=== PATIENT | male | born 1965 | race Caucasian/White ===

== ENCOUNTER → 2016-12-31 | Outpatient (CLI) | payer BC ==
--- NOTE | 2017-01-03 07:52 | MRI ---
EXAM DESCRIPTION: Noncontrast MRI of the right shoulder CLINICAL HISTORY: Shoulder pain COMPARISON: None TECHNIQUE: Multiplanar, multi sequence MRI images of the right shoulder were obtained without intra-articular contrast. FINDINGS: There is moderate to severe increased signal seen within the subscapularis tendon and, to a lesser degree, distal supraspinatus and infraspinatus tendons compatible with tendinosis. However, no high-grade partial or full-thickness rotator cuff tear. Muscle bulk of the rotator cuff is normal in signal and morphology. Long head of the biceps is well situated within the intertubercular groove. Biceps labral anchor is intact. Increased signal seen within the base of the superior labrum extending posteriorly to the 9:00 position compatible with a SLAP tear. No displaced labral fragment or para labral cyst formation. Severe degenerative changes of the acromioclavicular joint. No fluid seen within the subdeltoid/subacromial bursa. Type 2 acromion is noted. Glenohumeral joint cartilage is intact. No large joint effusion or loose body. Marrow signal is otherwise unremarkable without fracture or subluxation. IMPRESSION: 1. Severe subscapularis and mild to moderate infraspinatus and supraspinatus tendinosis without high-grade partial or full-thickness rotator cuff tear. 2. Nondisplaced SLAP tear. 3. Severe AC joint osteoarthritis. Electronically signed by: Aneudy Harrell MD 01/03/2017 7:52 AM CDT
== END | disposition home or self-care (01) ==
LOC: MRI 10:57
PROVIDERS: ATTEND Family Medicine
DX: M25.511 Pain in right shoulder (principal)

== ENCOUNTER → 2017-05-31 | Outpatient (CLI) | payer BC | END | disposition home or self-care (01) | LOC: GMAM 10:50 | PROVIDERS: ATTEND Family Medicine | DX: Z12.5 Encounter for screening for malignant neoplasm of prostate (principal) ==

== ENCOUNTER → 2020-01-21 | Outpatient (CLI) | payer BC ==
--- NOTE | 2020-01-21 11:11 | RAD ---
EXAM DESCRIPTION: Pelvis CLINICAL HISTORY: 54 years Male, HIP PAIN LEFT AND RIGHT COMPARISON: None. FINDINGS: Mild degenerative spurring in the lower T-spine with mild degenerative narrowing at the SI joints and hip joints. Mild spurring at the lateral acetabular margins. IMPRESSION: Negative for fracture. Electronically signed by: Edwar Phan MD 01/21/2020 11:10 AM CDT
--- NOTE | 2020-01-21 11:14 | RAD ---
EXAM DESCRIPTION: Knee,Left Complete CLINICAL HISTORY: 54 years, Male, PAIN IN LEFT KNEE COMPARISON: None TECHNIQUE: Four x-ray views of the left knee standing FINDINGS: No fracture or dislocation. Bones appear osteopenic. Narrowed appearance of medial more than lateral compartments on frontal view with prominent spurring at the tibial spines and mild spurring along the medial joint line. Faint calcification of the lateral meniscus. Lateral view shows normal position of the patella. Mild posterior patellar spurring. No definite suprapatellar knee joint effusion. Normal contour of quadriceps and patellar tendons. No abnormal patellar tilt or subluxation on patellar sunrise view. Prominent spurring along the posteromedial aspect of the patella and along the lateral patellar margin. Prominent spurring at the anterior femoral trochlear margins. IMPRESSION: Advanced degenerative osteoarthritic changes as described. Electronically signed by: Edwar Phan MD 01/21/2020 11:12 AM CDT
--- NOTE | 2020-01-21 11:16 | RAD ---
EXAM DESCRIPTION: Knee,Right Complete CLINICAL HISTORY: 54 years, Male, PAIN IN RIGHT KNEE COMPARISON: None TECHNIQUE: Four standing x-ray views of the right knee standing FINDINGS: No fracture or dislocation. Bones appear mildly osteopenic with prominent trabecular pattern. Narrowed appearance of medial more than lateral compartments on frontal view with prominent spurring of the tibial spines and at the intercondylar notch. Prominent medial joint line spurring. Question lateral meniscal calcification. Lateral view shows normal position of the patella. Prominent posterior patellar spurring with narrowed patellofemoral joint No suprapatellar knee joint effusion. Normal contour of quadriceps and patellar tendons. No abnormal patellar tilt or subluxation on patellar sunrise view. Prominent marginal osteophyte formation involving the patella and lateral margins of the femoral trochlea. Some spurs project into the patellofemoral joint. IMPRESSION: Advanced degenerative osteoarthritic changes as described. Electronically signed by: Edwar Phan MD 01/21/2020 11:14 AM CDT
== END ==
LOC: RAD 09:18
PROVIDERS: ATTEND Orthopaedic Surgery
DX: M17.0 Bilateral primary osteoarthritis of knee (principal); M25.551 Pain in right hip; M25.552 Pain in left hip